=== PATIENT | male | born 1965 | race Caucasian/White ===

== ENCOUNTER 2017-08-01 17:24 | Inpatient (IN) | payer SELFPAY ==
[~2017-08-01] VITALS: Ht 180.3 cm; Wt 83.9 kg
[2017-08-01] MEDS ORDERED: Pantoprazole Inj IV ONE (17:30)
--- NOTE | 2017-08-01 17:55 | Emergency Room Report ---
History of Present Illness General Chief Complaint: General Complaint Source: Patient, EMS Present Illness HPI 51-year-old male, alcoholic, presenting with 3 days of epigastric pain, generalized weakness. Patient not very good historian. EMS states that he was picked up from a hotel, family was with him, states that for 3 days he has had some dark bloody vomiting. Patient denies having any vomiting today, says that the last time was yesterday. Also has been having dark stool. Admits to drinking 1.5 pints of hard liquor every day. The last drink was 3-4 days ago. Denies any history of GI bleeding. Denies history of having endoscopy or colonoscopy is performed. Denies being on any blood thinners Allergies: Coded Allergies: No Known Allergies (Unverified , 08/01/17) Patient History Past Medical History: see triage record Past Surgical History: none Pertinent Family History: none Reviewed Nursing Documentation: PMH: Agreed, PSxH: Agreed Nursing Documentation-PMH Past Medical History: No History, Except For Hx Hypertension: Yes Review of Systems All Other Systems: negative except mentioned in HPI Physical Exam Vital Signs Date Time Temp Pulse Resp B/P (MAP) Pulse Ox O2 Delivery O2 Flow Rate FiO2 08/01/17 17:19 86 20 90/60 86 Non-Rebreather 15.0 Sp02 EP Interpretation: reviewed, normal General Appearance: alert, GCS 15, non-toxic, moderate distress Head: normocephalic, atraumatic Eyes: bilateral eye normal inspection, bilateral eye PERRL, bilateral eye EOMI ENT: normal ENT inspection, normal pharynx, normal voice, moist mucus membranes Neck: normal inspection, full range of motion, supple Respiratory: normal inspection, lungs clear, normal breath sounds, no respiratory distress, no retraction, no wheezing, speaking full sentences, chest symmetrical Cardiovascular #1: normal inspection, regular rate, rhythm, normal capillary refill Cardiovascular #2: 2+ radial (R), 2+ radial (L) Gastrointestinal: other - +mild epigastric and LLE tenderness, no guarding or rigdity. normal BS Musculoskeletal: normal inspection, back normal, normal range of motion, non- tender Neurologic: normal inspection, alert, oriented x3, responsive, motor strength/ tone normal, sensory intact, normal gait, speech normal Psychiatric: other - POOR HISTORIAN Skin: normal inspection, normal color, no rash, warm/dry, well hydrated, normal turgor Procedures Critical Care Time Critical Care Time 40 minutes of CC time 51-year-old male, presenting with abdominal pain, coffee-ground emesis Found to have perforated gastric ulcer VS: Hypotensive Airway patent. Not hypoxic. PLAN: IV access, labs, lactate, troponin, CT abdomen pelvis, and surgery consults, antibiotics Anticipate admission to Tele vs. VERA CC time also includes review of labs, review of EMR, discussion with family and paperwork from SNF, d/w hospitalist CC could include dosing of pressors, additional Abx CC time does not include procedures Central Line Central Line : Consent: Emergent Central Line Lumen: triple Maximal Sterile Barrier Tech: yes cap, yes mask, yes sterile gown, yes sterile gloves, yes large sterile sheet, yes hand hygiene, yes chlorhexidine prep Central Line Postion: internal jugular (R) Anesthesia: Lidocaine cc's of anesthesia: 5 Complications: none Central Line Post Position: sutured, good blood return, position confirmed w / CXR Attempts: One Patient Tolerated: Well Medical Decision Making Diagnostic Impression: Primary Impression: Hyponatremia Additional Impressions: Renal failure Upper GI bleeding Alcohol abuse Lactic acid acidosis Perforated ulcer Pneumoperitoneum Septic shock ER Course 51-year-old male with coffee-ground emesis DDX: GI bleed, esophageal varices, gastritis, gastric ulcer, diverticulitis, appendicitis Plan: Obtain labs, ua, EKG, CXR, CT abdomen pelvis Protonix, Zofran ER course: Patient has been monitored during ED stay, HD stable Protonix and Zofran given BP has remained stable no episodes of vomiting in ED labs remarkable for lactic acidosis, hyponatremia, renal failure, elevated LFTS octreotide given for poss esoph varices CT abdo pelvis obtained: gastric hemorrhagic mass with possible perforation, also poss gastric ulcer perf Dr North from surgery consulted fluids given x 3-- patient still persistently hypotensive central line placed levophed started I spoke to patient and fiance at bedside, conveyed very critical condition of patient. Sepsis Re-examination Time: 9:50 PM VS: Temp 98 HR 86 BP 100/80 RR 20 CVS: RRR Respiratory: Lungs clear bilaterally Peripheral pulses: 2+ radial Capillary refill: <2 seconds Skin exam: warm, dry, no rash, not mottled Disposition: Patient is to be admitted to ICU / OR with Dr North hospitlist Dr Nelson Anne and Dr Lanier covering for Ericbrenda Please note that this Emergency Department Report was dictated using [employer]pa[employer] consultant technology software, occasionally this can lead to erroneous entry secondary to interpretation by the dictation equipment. EKG Diagnostic Results EP Interpretation: Yes Rate: normal Rhythm: NSR ST Segments: No acute changes ASA given to patient: No Rhythm Strip EP Interpretation: Yes Rate: 90 Rhythm: NSR, no PVCs, no ectopy Chest X-ray CXR: Ordered: Yes 1 view Indication: Pain EP interpretation: Yes Interpretation: No consolidation, no effusion, no PTX, no acute cardiopulmonary disease Impression: No acute disease Electronically signed by Catalina Curran MD Chest X-ray CXR: Ordered: Yes 1 view Indication: Chest pain EP interpretation: Yes Interpretation: No consolidation, no effusion, no PTX, no acute cardiopulmonary disease, CVP in place Impression: cvp in place Electronically signed by Catalina Curran MD Laboratory Tests Test 08/01/17 17:35 White Blood Count 17.5 K/UL (4.8-10.8) H Red Blood Count 3.58 M/UL (4.70-6.10) L Hemoglobin 12.6 G/DL (14.2-18.0) L Hematocrit 39.3 % (42.0-52.0) L Mean Corpuscular Volume 110 FL (80-99) H Mean Corpuscular Hemoglobin 35.1 PG (27.0-31.0) H Mean Corpuscular Hemoglobin Concent 32.0 G/DL (32.0-36.0) Red Cell Distribution Width 14.3 % (11.6-14.8) Platelet Count 469 K/UL (150-450) H Mean Platelet Volume 7.0 FL (6.5-10.1) Neutrophils (%) (Auto) 87.2 % (45.0-75.0) H Lymphocytes (%) (Auto) 9.2 % (20.0-45.0) L Monocytes (%) (Auto) 2.6 % (1.0-10.0) Eosinophils (%) (Auto) 0.1 % (0.0-3.0) Basophils (%) (Auto) 0.9 % (0.0-2.0) Prothrombin Time 11.5 SEC (9.30-11.50) Prothrombin Time INR 1.1 (0.9-1.1) PTT 35 SEC (23-33) H Sodium Level 127 MMOL/L (136-145) L Potassium Level 4.5 MMOL/L (3.5-5.1) Chloride Level 85 MMOL/L (98-107) L Carbon Dioxide Level 12 MMOL/L (21-32) L Anion Gap 30 mmol/L (5-15) H Blood Urea Nitrogen 34 mg/dL (7-18) H Creatinine 4.1 MG/DL (0.55-1.30) H Estimate Glomerular Filtration Rate 15.4 mL/min (>60) Glucose Level 79 MG/DL (74-106) Lactic Acid Level 17.90 mmol/L (0.66-2.22) H Calcium Level 10.5 MG/DL (8.5-10.1) H Total Bilirubin 1.1 MG/DL (0.2-1.0) H Direct Bilirubin 0.5 MG/DL (0.0-0.3) H Aspartate Amino Transferase (AST) 286 U/L (15-37) H Alanine Aminotransferase (ALT) 166 U/L (12-78) H Alkaline Phosphatase 71 U/L (46-116) Troponin I 0.000 ng/mL (0.000-0.056) Total Protein 6.1 G/DL (6.4-8.2) L Albumin 2.4 G/DL (3.4-5.0) L Globulin 3.7 g/dL Albumin/Globulin Ratio 0.6 (1.0-2.7) L Lipase 384 U/L (73-393) Last Vital Signs Date Time Temp Pulse Resp B/P (MAP) Pulse Ox O2 Delivery O2 Flow Rate FiO2 08/01/17 17:19 86 20 90/60 86 Non-Rebreather 15.0 Disposition: ADMITTED INPATIENT Condition: Critical Catalina Curran M.D. Aug 01, 2017 17:55
[2017-08-01 18:15] LABS: BASOPHILS % (AUTO) 0.9 % (0.0-2.0); EOSINOPHILS % (AUTO) 0.1 % (0.0-3.0); HEMATOCRIT 39.3 % (42.0-52.0); HEMOGLOBIN 12.6 G/DL (14.2-18.0); LYMPHOCYTES % (AUTO) 9.2 % (20.0-45.0); MEAN CORPUSCULAR VOLUME 110 FL (80-99); MONOCYTES % (AUTO) 2.6 % (1.0-10.0); NEUTROPHILS % (AUTO) 87.2 % (45.0-75.0); PLATELET COUNT 469 K/UL (150-450); RED BLOOD COUNT 3.58 M/UL (4.70-6.10); RED CELL DISTRIBUTION WIDTH 14.3 % (11.6-14.8); WHITE BLOOD COUNT 17.5 K/UL (4.8-10.8)
[2017-08-01 18:33] LABS: ANION GAP 30 mmol/L (5-15); BLOOD UREA NITROGEN 34 mg/dL (7-18); CALCIUM 10.5 MG/DL (8.5-10.1); CARBON DIOXIDE 12 MMOL/L (21-32); CHLORIDE 85 MMOL/L (98-107); CREATININE 4.1 MG/DL (0.55-1.30); POTASSIUM 4.5 MMOL/L (3.5-5.1); SODIUM 127 MMOL/L (136-145)
[2017-08-01 18:47] LABS: ALANINE AMINOTRANSFERASE 166 U/L (12-78); ALBUMIN 2.4 G/DL (3.4-5.0); ALBUMIN/GLOBULIN RATIO 0.6 (1.0-2.7); ALKALINE PHOSPHATASE 71 U/L (46-116); ASPARTATE AMINO TRANSFERASE 286 U/L (15-37); BILIRUBIN,TOTAL 1.1 MG/DL (0.2-1.0)
[2017-08-01] MEDS ORDERED: LISINOPRIL-HCT1 EACH ORAL (18:47)
[2017-08-01 18:53] LABS: BILIRUBIN,DIRECT 0.5 MG/DL (0.0-0.3)
[2017-08-01 18:56] LABS: INR 1.1 (0.9-1.1)
[2017-08-01 20:00] VITALS: BP 79/39
[2017-08-01] MEDS: Octreotide Acetate 500 MCG in Sodium Chloride 500ML 499 ML IV SCH (20:07)
[2017-08-01] MEDS ORDERED: Piperacillin/Tazobactam 3.375 GM in NS 110 ML IVPB ONE (20:45)
[2017-08-01] MEDS ORDERED: Zosyn 3.375gm inj ONE (20:51)
[2017-08-01 21:00] VITALS: BP 87/66
[2017-08-01] MEDS ORDERED: Morphine Sulfate 4mg/ml Inj IVP ONE (21:15)
[2017-08-01] MEDS ORDERED: Lidocaine 1% Plain 30 ml INJ ONE (21:15)
[2017-08-01] MEDS ORDERED: fentaNYL 100 mcg/2 mL IV ONE ×3 (21:19→22:30)
[2017-08-01] MEDS ORDERED: Levophed 4mg/4mL Inj IV ONE ×2 (21:21→23:40)
[2017-08-01] MEDS ORDERED: Bacitracin 50000 Units Vial IRRIG ONE (22:00)
--- NOTE | 2017-08-01 22:01 | Consultation ---
History of Present Illness General Date patient seen: Aug 01, 2017 Chief Complaint: General Complaint Reason for Consultation: perforated viscus Present Illness HPI 51M presented to ED c/o worsening abdominal pain. patient is a poor historian. states that for 6 months he has been feeling stressed and unwell. has been having abdominal bloating and discomfort for past 6 months. has been having intermittent nausea and emesis for 6 months. past 3 days has had dark possibly bloody emesis. abdominal pain has been acutely worsening over past 3 days and 8 /10 at max. he began to become sob and worse tonight so came to ED for evaluation. in ED CT scan performed and found to have significant free fluid, pneumoperitoneum and likely gastric perforation with surrounding gastric edema. surgery called to evaluate. no history of scope. last BM 3 days ago and normal when seen at bedside patient in moderate distress. history obtained, chart reviewed, images reviewed. PMHx: HTN PSHx: right hip surgery after ski accident years ago Meds: losartan and HCTZ NKDA Social Hx: drinks daily (2-3 beers and hard alcohol for some time now), tobacco use and marijuana use. no ivda. stopped drinking 3 days ago because of discomfort. FHx: n/c Allergies: Coded Allergies: No Known Allergies (Unverified , 08/01/17) Medication History Scheduled Lisinopril/Hydrochlorothiazide 10-12.5 Mg Tab (Lisinopril-Hctz 10-12.5 Mg Tab), 1 TAB ORAL BID, (Reported) Patient History History Provided By: Patient, Medical Record Healthcare decision maker Resuscitation status Advanced Directive on File Past Medical/Surgical History Past Medical/Surgical History: (1) Septic shock (2) Pneumoperitoneum (3) Alcohol abuse (4) Hyponatremia (5) Renal failure (6) Upper GI bleeding (7) Lactic acid acidosis (8) Perforated ulcer Review of Systems All Other Systems: negative except mentioned in HPI Physical Exam General Appearance: moderate distress Lines, tubes and drains: peripheral, central line HEENT: normocephalic, atraumatic Neck: normal inspection Respiratory/Chest: lungs clear, no accessory muscle use, other - labored on face mask Cardiovascular/Chest: normal peripheral pulses, tachycardia Abdomen: distended, guarding, rebound, tender, other - peritonitis generalized with acute abdomen Extremities: normal inspection Neurologic: alert, oriented x 3, responsive Last 24 Hour Vital Signs Date Time Temp Pulse Resp B/P (MAP) Pulse Ox O2 Delivery O2 Flow Rate FiO2 08/01/17 21:00 94.8 80 20 87/66 86 Room Air 15.0 94.8 08/01/17 20:00 94.8 80 20 79/39 86 Room Air 15.0 94.8 08/01/17 18:42 94.8 94.8 08/01/17 17:19 86 20 90/60 86 Non-Rebreather 15.0 Laboratory Tests Test 08/01/17 17:35 08/01/17 21:30 White Blood Count 17.5 K/UL (4.8-10.8) H Red Blood Count 3.58 M/UL (4.70-6.10) L Hemoglobin 12.6 G/DL (14.2-18.0) L Hematocrit 39.3 % (42.0-52.0) L Mean Corpuscular Volume 110 FL (80-99) H Mean Corpuscular Hemoglobin 35.1 PG (27.0-31.0) H Mean Corpuscular Hemoglobin Concent 32.0 G/DL (32.0-36.0) Red Cell Distribution Width 14.3 % (11.6-14.8) Platelet Count 469 K/UL (150-450) H Mean Platelet Volume 7.0 FL (6.5-10.1) Neutrophils (%) (Auto) 87.2 % (45.0-75.0) H Lymphocytes (%) (Auto) 9.2 % (20.0-45.0) L Monocytes (%) (Auto) 2.6 % (1.0-10.0) Eosinophils (%) (Auto) 0.1 % (0.0-3.0) Basophils (%) (Auto) 0.9 % (0.0-2.0) Prothrombin Time 11.5 SEC (9.30-11.50) Prothromb Time International Ratio 1.1 (0.9-1.1) Activated Partial Thromboplast Time 35 SEC (23-33) H Sodium Level 127 MMOL/L (136-145) L Potassium Level 4.5 MMOL/L (3.5-5.1) Chloride Level 85 MMOL/L (98-107) L Carbon Dioxide Level 12 MMOL/L (21-32) L Anion Gap 30 mmol/L (5-15) H Blood Urea Nitrogen 34 mg/dL (7-18) H Creatinine 4.1 MG/DL (0.55-1.30) H Estimat Glomerular Filtration Rate 15.4 mL/min (>60) Glucose Level 79 MG/DL (74-106) Lactic Acid Level 17.90 mmol/L (0.66-2.22) H Pending Calcium Level 10.5 MG/DL (8.5-10.1) H Total Bilirubin 1.1 MG/DL (0.2-1.0) H Direct Bilirubin 0.5 MG/DL (0.0-0.3) H Aspartate Amino Transf (AST/SGOT) 286 U/L (15-37) H Alanine Aminotransferase (ALT/SGPT) 166 U/L (12-78) H Alkaline Phosphatase 71 U/L (46-116) Troponin I 0.000 ng/mL (0.000-0.056) Total Protein 6.1 G/DL (6.4-8.2) L Albumin 2.4 G/DL (3.4-5.0) L Globulin 3.7 g/dL Albumin/Globulin Ratio 0.6 (1.0-2.7) L Lipase 384 U/L (73-393) Height (Feet): 5 Height (Inches): 11.00 Weight (Pounds): 180 Medications Current Medications Medications (Trade) Dose Ordered Sig/Sydnee Route PRN Reason Start Time Stop Time Status Last Admin Dose Admin Norepinephrine Bitartrate 4 mg/ Dextrose 250 ml @ 0 mls/hr Q24H IV 08/01/17 21:15 08/31/17 21:14 Octreotide Acetate 500 mcg/ Sodium Chloride 500 ml @ 50 mls/hr Q10H IV 08/01/17 19:00 08/31/17 18:59 08/01/17 20:07 Assessment/Plan Problem List: (1) Perforated ulcer Assessment & Plan: 51M with likely perforated gastric ulcer. septic in shock. leukocytosis. lactic acid 17!!!!! Cr elevated, liver functions elevated. poor condition. peritonitis with acute abdomen. CT findings reviewed. Needs to go to OR right away. IV fluids IV Abx Consent OR for exploratory laparotomy. mortality explained to patient as well as high morbidity rate. prognosis guarded ICD Codes: K27.5 - Chronic or unspecified peptic ulcer, site unspecified, with perforation; R65.21 - Severe sepsis with septic shock SNOMED: [id number] Status: deteriorating King North Aug 01, 2017 22:01
--- NOTE | 2017-08-01 22:02 | Pre-Procedure Note/Attestation ---
Pre-Procedure Note/Attestation Complete Prior to Procedure Planned Procedure: not applicable Procedure Narrative: exploratory laparotomy, possible bowel resection, possible ostomy Indications for Procedure Pre-Operative Diagnosis: perforated viscus, acute abdomen, peritonitis, septic shock Attestation I attest that I discussed the nature of the procedure; its benefits; risks and complications; and alternatives (and the risks and benefits of such alternatives ), prior to the procedure, with the patient (or the patient's legal membership sales representative). I attest that, if there was a reasonable possibility of needing a blood transfusion, the patient (or the patient's legal membership sales representative) was given the [facility] standardized written summary, pursuant to the Yonis [employer] Blood Safety Act ([place] Health and Safety Code # 1645, as amended). I attest that I re-evaluated the patient just prior to the surgery and that there has been no change in the patient's H&P, except as documented below: King North Aug 01, 2017 22:02
[2017-08-01 22:05] VITALS: BP 98/69
[2017-08-01 22:15] VITALS: BP 100/63
[2017-08-01] MEDS ORDERED: Midazolam 2mg/2ml Inj ONE (22:16)
[2017-08-01] MEDS ORDERED: Propofol 200mg/20ml IV ONE (22:16)
[2017-08-01] MEDS ORDERED: Zemuron 50mg/5ml Inj IV ONE (22:16)
[2017-08-01] MEDS ORDERED: Succinylcholine 20mg/ml 10ml vial ONE (22:16)
[2017-08-01] MEDS ORDERED: LR 1000ml ONE (22:16)
[2017-08-01 23:30] VITALS: BP 62/29
--- NOTE | 2017-08-01 23:33 | Anethesia Preoperative Eval ---
Anesthesia Pre-op PMH/ROS General Date of Evaluation: Aug 01, 2017 Time of Evaluation: 22:16 Anesthesiologist: Adrienne ASA Score: ASA 4 - Emergency Mallampati Score Class I : Soft palate, uvula, fauces, pillars visible Class II: Soft palate, uvula, fauces visible Class III: Soft palate, base of uvula visible Class IV: Only hard plate visible Mallampati Classification: Class II Surgeon: Mary Anne Diagnosis: Abd Pain Surgical Procedure: Exp Lap Family History: no anesthesia problems Allergies: Coded Allergies: No Known Allergies (Unverified , 08/01/17) Medications: see eMAR Past Medical History Cardiovascular: Reports: HTN Anesthesia Pre-op Phys. Exam Physician Exam Date of Discussion: 08/01/17 A [id number] discussion with the [] regarding the patient's advanced care planning took place during this hospitalization on the above date. The discussion included the explanation and discussion of advance directives and associated forms/documents, as well as the patient's current code status. We also discussed at length the patient's medical conditions (both acute and chronic), general prognosis, treatment options, and goals of care. The following summarizes the discussion: Advance Care Planning/Goals of Care: - Will attempt to fill out an AD and/or POLST with the patient prior to discharge, if not already completed - Continue current evaluation and management of any acute and chronic medical issues - Will continue to support the patient/family - Will continue to discuss both short- and long-term goals of care DPOA-HC/Surrogate Decision Maker: None currently appointed [] Code Status: Full Code AD Forms/Documents Completed: Deferred A total of 31 minutes was spent on this discussion, including counseling, answering questions, and completing, if any, pertinent advanced care planning forms/documents. Last Vital Signs Date Time Temp Pulse Resp B/P (MAP) Pulse Ox O2 Delivery O2 Flow Rate FiO2 08/01/17 22:15 98.0 20 100/63 99 Simple Mask 98.0 08/01/17 22:05 88 15.0 80 Constitutional: other - In Extremis Neurologic: CN 2-12 intact Cardiovascular: other - Rhonchi Bilateral Respiratory: other - Rhonci Gastrointestinal: S/NT/ND Airway Exam Mallampati Score: Class II MO: limited ROM: limited Teeth: missing, intact Anesthesia Pre-op A/P Labs Hematology Test 08/01/17 17:35 White Blood Count 17.5 K/UL (4.8-10.8) H Red Blood Count 3.58 M/UL (4.70-6.10) L Hemoglobin 12.6 G/DL (14.2-18.0) L Hematocrit 39.3 % (42.0-52.0) L Mean Corpuscular Volume 110 FL (80-99) H Mean Corpuscular Hemoglobin 35.1 PG (27.0-31.0) H Mean Corpuscular Hemoglobin Concent 32.0 G/DL (32.0-36.0) Red Cell Distribution Width 14.3 % (11.6-14.8) Platelet Count 469 K/UL (150-450) H Mean Platelet Volume 7.0 FL (6.5-10.1) Neutrophils (%) (Auto) 87.2 % (45.0-75.0) H Lymphocytes (%) (Auto) 9.2 % (20.0-45.0) L Monocytes (%) (Auto) 2.6 % (1.0-10.0) Eosinophils (%) (Auto) 0.1 % (0.0-3.0) Basophils (%) (Auto) 0.9 % (0.0-2.0) Coagulation Test 08/01/17 17:35 Prothrombin Time 11.5 SEC (9.30-11.50) Prothromb Time International Ratio 1.1 (0.9-1.1) Activated Partial Thromboplast Time 35 SEC (23-33) H Chemistry Test 08/01/17 17:35 08/01/17 21:30 Sodium Level 127 MMOL/L (136-145) L Potassium Level 4.5 MMOL/L (3.5-5.1) Chloride Level 85 MMOL/L (98-107) L Carbon Dioxide Level 12 MMOL/L (21-32) L Anion Gap 30 mmol/L (5-15) H Blood Urea Nitrogen 34 mg/dL (7-18) H Creatinine 4.1 MG/DL (0.55-1.30) H Estimat Glomerular Filtration Rate 15.4 mL/min (>60) Glucose Level 79 MG/DL (74-106) Lactic Acid Level 17.90 mmol/L (0.66-2.22) H 9.00 mmol/L (0.66-2.22) H Calcium Level 10.5 MG/DL (8.5-10.1) H Total Bilirubin 1.1 MG/DL (0.2-1.0) H Direct Bilirubin 0.5 MG/DL (0.0-0.3) H Aspartate Amino Transf (AST/SGOT) 286 U/L (15-37) H Alanine Aminotransferase (ALT/SGPT) 166 U/L (12-78) H Alkaline Phosphatase 71 U/L (46-116) Troponin I 0.000 ng/mL (0.000-0.056) Total Protein 6.1 G/DL (6.4-8.2) L Albumin 2.4 G/DL (3.4-5.0) L Globulin 3.7 g/dL Albumin/Globulin Ratio 0.6 (1.0-2.7) L Lipase 384 U/L (73-393) Risk Assessment & Plan Assessment: ASA 4E Plan: GA Pre-Antibiotics Dru Grams Ancef IV Given Within 1 Hr of Incision: Yes Time Given: 22:41 Devan Deleon MD Aug 01, 2017 23:32
--- NOTE | 2017-08-01 23:35 | General Progress Note ---
Progress Note Progress Note Surgery: After acute resuscitation in ED patient was taken to OR for Emergency surgery. Patient's condition deteriorating upon transport and active resuscitation in process. shortly after entering the operating room patient acutely decompensated then went into cardiopulmonary arrest. Active ACLS protocol initiated with chest compressions and code blue called. Staff support arrived and after 3 epi and 1 bicarb with ACLS was able to regain vitals. Patient too unstable to proceed with surgery and taken to ICU for resuscitation. High mortality if proceeding with surgery. Best chance patient has is with aggressive resuscitation overnight with plans to return to OR in AM if possible. He was very sick prior to surgery with known high morbidity and mortality. Prognosis guarded. King North Aug 01, 2017 23:35
--- NOTE | 2017-08-01 23:40 | Immediate Post-Op Evaluation ---
Immediate Post-Op Evalulation Immediate Post-Op Evalulation Procedure: Cancelled Operation-Pt Arrested in OR Date of Evaluation: Aug 01, 2017 Time of Evaluation: 11:47 IV Fluids: 200 LR Blood Products: 0 Estimated Blood Loss: 0 Urinary Output: 0 Blood Pressure Systolic: 121 Blood Pressure Diastolic: 61 Pulse Rate: 126 Respiratory Rate: 20 - Mech Vent O2 Sat by Pulse Oximetry: 98 Temperature (Fahrenheit): 97 Pain Score (1-10): 0 Nausea: No Vomiting: No Complications Pt Arrested After Intubation. Bradycardia , then CPR Started, 3 amps epi, 1 amp Bicarb. Rhythm restored . Taken to ICU . Operation Cancelled Patient Status: no response, patent, ventilated, none Hydration Status: other Dru Grams ancef IV Given Within 1 Hr of Incision: Yes Time Given: 11:41 Devan Deleon MD Aug 01, 2017 23:40
[2017-08-01 23:45] VITALS: BP 112/72
[2017-08-01] MEDS ORDERED: Piperacillin/Tazobactam 3.375 GM in NS 110 ML IVPB SCH (23:45)
[2017-08-01] MEDS ORDERED: Hydromorphone 0.5mg/0.5ml inj IVP PRN (23:45)
[2017-08-01] MEDS ORDERED: HYDROmorphone 1mg/ml Carpuject IVP PRN (23:45)
[2017-08-01] MEDS ORDERED: LORazepam Inj 2mg/ml 1ml IV PRN (23:45)
[2017-08-02] VITALS (31 sets, daily range): BP systolic 65–113; BP diastolic 24–82
[2017-08-02] MEDS ORDERED: Sodium Bicarbonate 50ml Carp IV ONE ×2 (00:15→07:30)
[2017-08-02] MEDS: Pantoprazole Inj IV SCH ×2 (00:24→08:54)
[2017-08-02] MEDS ORDERED: Calcium Gluconate 10% 1 GM in NS 110 ML IV ONE (00:45)
[2017-08-02] MEDS: Octreotide Acetate 500 MCG in Sodium Chloride 500ML 499 ML IV SCH (01:05)
[2017-08-02] MEDS ORDERED: Calcium Gluconate 1gm/10ml vial ONE ×2 (01:39→08:55)
[2017-08-02] MEDS ORDERED: Levophed 4mg/4mL Inj IV ONE ×3 (01:49→07:00)
[2017-08-02] MEDS ORDERED: Zosyn 3.375gm inj ONE (05:23)
[2017-08-02 05:58] LABS: HEMATOCRIT 35.3 % (42.0-52.0); HEMOGLOBIN 11.2 G/DL (14.2-18.0); MEAN CORPUSCULAR VOLUME 111 FL (80-99); PLATELET COUNT 348 K/UL (150-450); RED BLOOD COUNT 3.18 M/UL (4.70-6.10); RED CELL DISTRIBUTION WIDTH 14.6 % (11.6-14.8); WHITE BLOOD COUNT 9.8 K/UL (4.8-10.8)
[2017-08-02] MEDS ORDERED: Piperacillin/Tazobactam 3.375 GM in NS 110 ML IVPB SCH (06:00)
[2017-08-02 06:21] LABS: INR 1.5 (0.9-1.1)
[2017-08-02 06:45] LABS: ALANINE AMINOTRANSFERASE 4802 U/L (12-78); ALBUMIN 1.8 G/DL (3.4-5.0); ALBUMIN/GLOBULIN RATIO 0.6 (1.0-2.7); ALKALINE PHOSPHATASE 101 U/L (46-116); ANION GAP 18 mmol/L (5-15); ASPARTATE AMINO TRANSFERASE < 5 U/L (15-37); BILIRUBIN,TOTAL 2.2 MG/DL (0.2-1.0); BLOOD UREA NITROGEN 40 mg/dL (7-18); CALCIUM 8.4 MG/DL (8.5-10.1); CARBON DIOXIDE 16 MMOL/L (21-32); CHLORIDE 90 MMOL/L (98-107); POTASSIUM 5.4 MMOL/L (3.5-5.1); SODIUM 124 MMOL/L (136-145)
[2017-08-02 06:49] LABS: BILIRUBIN,DIRECT 1.2 MG/DL (0.0-0.3)
--- NOTE | 2017-08-02 07:07 | 48 Hour Post Anesthesia Eval ---
Post Anesthesia Evaluation Procedure: Cancelled Operation-Pt Arrested in OR Date of Evaluation: Aug 02, 2017 Time of Evaluation: 07:05 Blood Pressure Systolic: 142 0: 116 Pulse Rate: 122 Respiratory Rate: 20 - Mech Vent Temperature (Fahrenheit): 98 O2 Sat by Pulse Oximetry: 98 Airway: patent Nausea: No Vomiting: No Pain Intensity: 0 Hydration Status: other Cardiopulmonary Status: Guarded Mental Status/LOC: other - ICU Intubated, episodes of bradycardia in ICU Follow-up Care/Observations: 0 Post-Anesthesia Complications: 0 Follow-up care needed: N/A Devan Deleon MD Aug 02, 2017 07:07
--- NOTE | 2017-08-02 08:35 | General Progress Note ---
Progress Note Progress Note Surgery: patient remains critically ill. on max levophed. acidotic. unresponsive. hypotensive. tachy. LFT's worsening. renal function poor. no uop. needs surgery but too unstable at this time. will continue with maximal medical therapy. will return to OR if can turn the corner and become more stable. appreciate ICU care and management King North Aug 02, 2017 08:35
[2017-08-02] MEDS ORDERED: Calcium Chloride 100mg/ml Vial IVP ONE (09:00)
[2017-08-02] MEDS ORDERED: Calcium Chloride 10% 10ml carpuject IVP ONE (09:00)
--- NOTE | 2017-08-02 09:21 | Emergency Room Report ---
History of Present Illness General Chief Complaint: General Complaint Source: Significant Other Present Illness Allergies: Coded Allergies: No Known Allergies (Unverified , 08/01/17) Nursing Documentation-[facility] Past Medical History: No History, Except For Hx Cardiac Problems: Yes Hx Hypertension: Yes Hx Cancer: No Hx Gastrointestinal Problems: Yes Hx Neurological Problems: No Physical Exam Vital Signs Date Time Temp Pulse Resp B/P (MAP) Pulse Ox O2 Delivery O2 Flow Rate FiO2 08/01/17 17:19 86 20 90/60 86 Non-Rebreather 15.0 08/01/17 18:42 94.8 94.8 08/01/17 23:30 100 Procedures Critical Care Time Critical Care Time CC time 30minutes Critical care time endorsed for this patient for cardiac arrest/asystole Critical care time includes review of laboratory tests, imaging, review of EMR, review of paperwork from SNF (if available), discussion with patient and family (if available), review of code status/POLS (if available). Critical care time also likely includes assessment of fluid status, stabilization of vital signs, dosing of pressors. Critical care time does not include any procedures which are documented elsewhere in this EMR. CPR/Code Blue CPR/Code Blue Narrative Called to ICU for Code Blue Patient already intubated Went to asystole CPR in progress Received 2x epi and 1 bicarb prior to my arrival Per RN recent labs showed elevated serumCr, hyper K Last ABG pH was 6.9 Patient on levophed Vitals on arrival: HR 126, BP 80/60, RR26, 100% o2 on vent Gave additional bicarb and Calcium On next pulse check, has strong peripheral pulse, strong contractility on bedside echo ROSC 910am Dr Red bedside Also informed Dr Lanier who is managing critical care Medical Decision Making Diagnostic Impression: Primary Impression: Hyponatremia Additional Impressions: Upper GI bleeding Alcohol abuse Lactic acid acidosis Septic shock Perforated ulcer Renal failure Pneumoperitoneum Cardiac arrest Last Vital Signs Date Time Temp Pulse Resp B/P (MAP) Pulse Ox O2 Delivery O2 Flow Rate FiO2 08/02/17 07:30 102 27 68/53 92 Mechanical Ventilator 100 08/02/17 07:07 208.4 08/02/17 04:00 100.0 Status: improved Disposition: ADMITTED INPATIENT Condition: Critical Referrals: NOT CHOSEN IPA/,REFERRING (PCP) FATOU QUACH M.D. Aug 02, 2017 09:21
--- NOTE | 2017-08-02 09:26 | Diagnostic Imaging Report ---
Indication: Abdominal pain Technique: Continuous helical transaxial imaging of the abdomen and pelvis was obtained from the lung bases to the pubic symphysis. No intravenous contrast was administered. Coronal 2-D reformats were also obtained. Automatic Exposure Control was utilized. Total Dose length Product (DLP): 729.[address] Dose Index Volume (CTDIvol): 12.3 mGy Comparison: none Findings: The study is limited by the absence of intravenous and oral contrast administration. There is suggestion of a large ulcerative mass in the lateral aspect of the stomach measuring approximately 10 x 8 cm x 11 cm in AP, transverse, craniocaudal oblique projections respectively. At the caudal end of the mass there is suggestion of ulceration with small areas of air. The mass is lobulated and slightly dense and as was suggested by the preliminary reader stat read may be hemorrhagic. There is free air and fairly massive degree of ascites which is presumably on the basis of perforation from the ulcerative mass in the stomach. There are fluid-filled distended loops of small bowel throughout the abdomen which may be ileus. The esophagus is moderately dilated and fluid-filled. Possible that this is secondary to some impediment to outflow, but the stomach mass does not appear to be obstructive as the stomach is not dilated proximally. Therefore would consider achalasia. Aorta is mildly calcified. The gallbladder is hyperdense which may be due to underlying sludge or stones. There is a right inguinal hernia containing fat. The urinary bladder is nondistended with some prominence of the wall of the urinary bladder noted. There is narrowing of intervertebral discs and accompanying endplate osteophyte formation. Hypertrophied facet joints also demonstrated.. IMPRESSION: 10 x 8 x 11 cm heterogeneous ulcerative mass lateral aspect of the stomach suspicious for malignancy. Evidence of perforation with extensive free fluid and free air within the peritoneal cavity. Hemorrhagic components may be present. Dilated esophagus fluid-filled. Consider achalasia. Atherosclerotic disease and other incidental findings as above. [facility] has communicated the preliminary results to the Emergency Department. Their findings are largely concordant with this report. The CT scanner at [facility] is accredited by the [employer] and the scans are performed using dose optimization techniques as appropriate to a performed exam including Automatic Exposure control.
[2017-08-02] MEDS ORDERED: LORazepam Inj 2mg/ml 1ml IV PRN (10:15)
[2017-08-02] MEDS ORDERED: Morphine Sulfate 4mg/ml Inj IVP PRN (10:15)
[2017-08-02] MEDS ORDERED: Amikacin Rx to dose MISC PRN (10:15)
--- NOTE | 2017-08-02 10:29 | Pulmonolgy Critical Care Note ---
Critical Care - Asmt/Plan Problems: (1) Multiple organ failure (2) Cardiac arrest (3) Septic shock (4) Pneumoperitoneum (5) Hyponatremia (6) Renal failure (7) Upper GI bleeding Respiratory: monitor respiratory rate, adjust FIO2, CXR Cardiac: continue pressors, continue to monitor HR/BP Renal: F/U I&O, increase IV fluid Infectious Disease: check cultures Gastrointestinal: continue feedings/current rate Endocrine: check TSH, check HgA1C, continue sliding scale insulin Hematologic: monitor H/H, transfuse if hgb<8.5 Neurologic: PRN Ativan, keep patient comfortable Affect: PRN ativan Disposition: keep in ICU Discussed with: nurses, consultants, mental health case manager, family member Critical Care - Objective Last 24 Hour Vital Signs Date Time Temp Pulse Resp B/P (MAP) Pulse Ox O2 Delivery O2 Flow Rate FiO2 08/02/17 10:00 65 28 98/42 92 Mechanical Ventilator 100 08/02/17 09:30 81/44 08/02/17 09:30 56 29 97/24 92 Mechanical Ventilator 100 08/02/17 09:21 101 27 100 08/02/17 09:00 83/46 08/02/17 09:00 61 28 81/44 92 Mechanical Ventilator 100 08/02/17 08:00 100 08/02/17 08:00 63/45 08/02/17 08:00 95 08/02/17 08:00 98.5 101 26 69/47 92 Mechanical Ventilator 100 08/02/17 07:30 102 27 68/53 92 Mechanical Ventilator 100 08/02/17 07:07 208.4 122 20 98 08/02/17 07:06 90/61 08/02/17 07:00 90 22 74/32 93 Mechanical Ventilator 100 08/02/17 06:58 109 26 100 08/02/17 06:30 110 22 89/62 93 Mechanical Ventilator 100 08/02/17 06:00 80/50 08/02/17 06:00 112 22 81/54 95 Mechanical Ventilator 100 08/02/17 05:30 115 22 93/52 95 Mechanical Ventilator 100 08/02/17 05:11 118 19 100 08/02/17 05:00 117 22 80/52 96 Mechanical Ventilator 100 08/02/17 05:00 80/52 08/02/17 04:57 92/72 08/02/17 04:30 119 26 92/72 96 Mechanical Ventilator 100 08/02/17 04:00 100.0 08/02/17 04:00 97/82 08/02/17 04:00 121 08/02/17 04:00 97.5 121 28 97/82 96 Mechanical Ventilator 100 08/02/17 03:30 121 26 65/52 99 Mechanical Ventilator 100 08/02/17 03:00 119 20 97/63 96 Mechanical Ventilator 100 08/02/17 03:00 74/43 08/02/17 02:59 119 17 100 08/02/17 02:45 119 20 93/63 93 Mechanical Ventilator 100 08/02/17 02:30 117 19 84/63 92 Mechanical Ventilator 100 08/02/17 02:15 117 16 79/53 92 Mechanical Ventilator 100 08/02/17 02:09 94/57 08/02/17 02:00 91/72 08/02/17 02:00 116 16 91/72 93 Mechanical Ventilator 100 08/02/17 01:45 115 16 94/57 93 Mechanical Ventilator 100 08/02/17 01:30 114 16 98/56 95 Mechanical Ventilator 100 08/02/17 01:22 115 16 100 08/02/17 01:15 113 16 101/61 96 Mechanical Ventilator 100 08/02/17 01:00 102/58 08/02/17 01:00 114 16 102/58 97 Mechanical Ventilator 100 08/02/17 00:45 115 16 106/71 98 Mechanical Ventilator 100 08/02/17 00:30 116 16 97/71 97 Mechanical Ventilator 100 08/02/17 00:15 116 16 87/57 99 Mechanical Ventilator 100 08/02/17 00:00 117 08/02/17 00:00 97.9 116 16 113/80 99 Mechanical Ventilator 100 08/02/17 00:00 100.0 08/01/17 23:54 60/30 08/01/17 23:45 116 16 112/72 99 Mechanical Ventilator 100 08/01/17 23:40 206.6 126 20 98 08/01/17 23:32 108 16 100 08/01/17 23:30 97.0 110 16 62/29 99 Mechanical Ventilator 100 08/01/17 22:30 97/62 08/01/17 22:15 98.0 20 100/63 99 Simple Mask 98.0 08/01/17 22:05 94.8 88 35 98/69 86 Room Air 15.0 94.8 80 08/01/17 21:57 79/67 08/01/17 21:00 94.8 80 20 87/66 86 Room Air 15.0 94.8 08/01/17 20:00 94.8 80 20 79/39 86 Room Air 15.0 94.8 08/01/17 18:42 94.8 94.8 08/01/17 17:19 86 20 90/60 86 Non-Rebreather 15.0 Status: obtunded Condition: critical, grave HEENT: atraumatic Neck: full ROM Lungs: rales, rhonchi Heart: HR/BP unstable Abdomen: absent bowel sounds Extremities: no C/C/E Accucheck: 64 Critical Care - Subjective ROS Limited/Unobtainable: Yes ICU Day: 1 Intubation Day: 1 Interval Events: 51-year-old male, alcoholic, presenting with 3 days of epigastric pain, generalized weakness. for 3 days he has had some dark bloody vomiting. Also has been having dark stool. Admits to drinking 1.5 pints of hard liquor every day. Ct of abdomen showed perforated viscous. He was taken to OR urgently. He arrested prior the start of the surgery and taken to ICU. FI02: 100 Vent Support Breath Rate: 24 Vent Support Mode: AC Vent Tidal Volume: 600 Sputum Amount: Moderate PEEP: 5.0 PIP: 33 I&O: Intake and Output 08/01/17 08/02/17 19:00 07:00 Intake Total 2945.0 ml Output Total 0 ml Balance 2945.0 ml Intake Oral 0 ml IV Total 2945.0 ml Output Urine Total 0 ml ET-Tube: 7.0 ET Position: 24 Labs: Laboratory Tests Test 08/01/17 17:35 08/01/17 21:30 08/01/17 23:48 08/02/17 05:30 White Blood Count 17.5 K/UL (4.8-10.8) H 9.8 K/UL (4.8-10.8) Red Blood Count 3.58 M/UL (4.70-6.10) L 3.18 M/UL (4.70-6.10) L Hemoglobin 12.6 G/DL (14.2-18.0) L 11.2 G/DL (14.2-18.0) L Hematocrit 39.3 % (42.0-52.0) L 35.3 % (42.0-52.0) L Mean Corpuscular Volume 110 FL (80-99) H 111 FL (80-99) H Mean Corpuscular Hemoglobin 35.1 PG (27.0-31.0) H 35.2 PG (27.0-31.0) H Mean Corpuscular Hemoglobin Concent 32.0 G/DL (32.0-36.0) 31.7 G/DL (32.0-36.0) L Red Cell Distribution Width 14.3 % (11.6-14.8) 14.6 % (11.6-14.8) Platelet Count 469 K/UL (150-450) H 348 K/UL (150-450) Mean Platelet Volume 7.0 FL (6.5-10.1) 8.2 FL (6.5-10.1) Neutrophils (%) (Auto) 87.2 % (45.0-75.0) H % (45.0-75.0) Lymphocytes (%) (Auto) 9.2 % (20.0-45.0) L % (20.0-45.0) Monocytes (%) (Auto) 2.6 % (1.0-10.0) % (1.0-10.0) Eosinophils (%) (Auto) 0.1 % (0.0-3.0) % (0.0-3.0) Basophils (%) (Auto) 0.9 % (0.0-2.0) % (0.0-2.0) Prothrombin Time 11.5 SEC (9.30-11.50) 16.1 SEC (9.30-11.50) H Prothromb Time International Ratio 1.1 (0.9-1.1) 1.5 (0.9-1.1) H Activated Partial Thromboplast Time 35 SEC (23-33) H 37 SEC (23-33) H Sodium Level 127 MMOL/L (136-145) L 124 MMOL/L (136-145) L Potassium Level 4.5 MMOL/L (3.5-5.1) 5.4 MMOL/L (3.5-5.1) H Chloride Level 85 MMOL/L (98-107) L 90 MMOL/L (98-107) L Carbon Dioxide Level 12 MMOL/L (21-32) L 16 MMOL/L (21-32) L Anion Gap 30 mmol/L (5-15) H 18 mmol/L (5-15) H Blood Urea Nitrogen 34 mg/dL (7-18) H 40 mg/dL (7-18) H Creatinine 4.1 MG/DL (0.55-1.30) H 4.0 MG/DL (0.55-1.30) H Estimat Glomerular Filtration Rate 15.4 mL/min (>60) 15.8 mL/min (>60) Glucose Level 79 MG/DL (74-106) 88 MG/DL (74-106) Lactic Acid Level 17.90 mmol/L (0.66-2.22) H 9.00 mmol/L (0.66-2.22) H 11.50 mmol/L (0.66-2.22) H Calcium Level 10.5 MG/DL (8.5-10.1) H 8.4 MG/DL (8.5-10.1) L Total Bilirubin 1.1 MG/DL (0.2-1.0) H 2.2 MG/DL (0.2-1.0) H Direct Bilirubin 0.5 MG/DL (0.0-0.3) H 1.2 MG/DL (0.0-0.3) H Aspartate Amino Transf (AST/SGOT) 286 U/L (15-37) H < 5 U/L (15-37) L Alanine Aminotransferase (ALT/SGPT) 166 U/L (12-78) H 4802 U/L (12-78) H Alkaline Phosphatase 71 U/L (46-116) 101 U/L (46-116) Troponin I 0.000 ng/mL (0.000-0.056) 2.844 ng/mL (0.000-0.056) Total Protein 6.1 G/DL (6.4-8.2) L 5.0 G/DL (6.4-8.2) L Albumin 2.4 G/DL (3.4-5.0) L 1.8 G/DL (3.4-5.0) L Globulin 3.7 g/dL 3.2 g/dL Albumin/Globulin Ratio 0.6 (1.0-2.7) L 0.6 (1.0-2.7) L Lipase 384 U/L (73-393) Arterial Blood pH 6.903 (7.350-7.450) Arterial Blood Partial Pressure CO2 54.3 mmHg (35.0-45.0) H Arterial Blood Partial Pressure O2 138.8 mmHg (75.0-100.0) H Arterial Blood HCO3 10.5 mmol/L (22.0-26.0) L Arterial Blood Oxygen Saturation 96.6 % (92.0-98.0) Arterial Blood Base Excess -22.1 Aldo Test Positive Ionized Calcium (Measured) 1.01 mmol/L (1.10-1.35) L Test 08/02/17 08:12 Arterial Blood pH 6.956 (7.350-7.450) Arterial Blood Partial Pressure CO2 32.7 mmHg (35.0-45.0) L Arterial Blood Partial Pressure O2 86.9 mmHg (75.0-100.0) Arterial Blood HCO3 7.1 mmol/L (22.0-26.0) L Arterial Blood Oxygen Saturation 92.7 % (92.0-98.0) Arterial Blood Base Excess -23.7 Aldo Test Positive ERLIN BETH Aug 02, 2017 10:29
--- NOTE | 2017-08-02 10:44 | Diagnostic Imaging Report ---
Indication: Line placement Comparison: None A single view chest radiograph was obtained. Findings: Right jugular central line is in good position. The tip is in the right atrium. Lung volumes are low bilaterally. No pneumothorax seen. IMPRESSION: Right jugular line in good position.
[2017-08-02] MEDS ORDERED: Vancomycin 1.5 GM/D5W 250ML IVPB ONE (11:00)
[2017-08-02] MEDS ORDERED: DOPamine 400mg/250ml 250 ML IV SCH ×2 (11:15→11:30)
[2017-08-02] MEDS ORDERED: Octreotide Acetate 500 MCG in Sodium Chloride 500ML 499 ML IV SCH (12:00)
[2017-08-02] MEDS ORDERED: Norepinephrine Bitartrate 8 MG in D5W 500ml 492 ML IV SCH (12:00)
[2017-08-02] MEDS ORDERED: Tubing IV Secondary IV ONE (12:29)
[2017-08-02] MEDS ORDERED: D5W 550ml IV ONE (12:29)
[2017-08-02] MEDS ORDERED: D5W 275ml ONE (12:29)
[2017-08-02] MEDS ORDERED: Sodium Bicarbonate 50ml Carp ONE ×2 (12:29)
--- NOTE | 2017-08-02 12:49 | Cardiology Report ---
APPROVED REPORT EKG Measurement Heart [id number] Normal sinus rhythm Low voltage QRS Nonspecific T wave abnormality Abnormal ECG
[2017-08-02] MEDS ORDERED: Amikacin 500 MG in NS 110 ML IV SCH (13:00)
--- NOTE | 2017-08-02 13:08 | Diagnostic Imaging Report ---
Indication: Dyspnea Comparison: 08/01/2017 A single view chest radiograph was obtained. Findings: Endotracheal tube is in good position just above the leida. Right jugular line again noted. Heart size is stable. Basilar atelectasis noted. IMPRESSION: Endotracheal tube in the position. No change in the
--- NOTE | 2017-08-02 14:28 | Diagnostic Imaging Report ---
Indication: Dyspnea Comparison: 08/01/2017 A single view chest radiograph was obtained. Findings: Cardiomediastinal appearance is within normal limits for age. Pulmonary vascularity is appropriate. The diaphragmatic contour is smooth and costophrenic angles are sharp. No pleural effusions are identified. The bones are unremarkable. Impression: No acute findings
--- NOTE | 2017-08-02 15:03 | Emergency Room Report ---
History of Present Illness General Chief Complaint: General Complaint Source: Significant Other Present Illness Allergies: Coded Allergies: No Known Allergies (Unverified , 08/01/17) Nursing Documentation-H Past Medical History: No History, Except For Hx Cardiac Problems: Yes Hx Hypertension: Yes Hx Cancer: No Hx Gastrointestinal Problems: Yes Hx Neurological Problems: No Physical Exam Vital Signs Date Time Temp Pulse Resp B/P (MAP) Pulse Ox O2 Delivery O2 Flow Rate FiO2 08/01/17 17:19 86 20 90/60 86 Non-Rebreather 15.0 08/01/17 18:42 94.8 94.8 08/01/17 23:30 100 Procedures CPR/Code Blue CPR/Code Blue Narrative Called again for Code Blue Glucose critically low Was given dextrose X2 pH continued to downtrend - I had advised admitting doctor to give bicarb gtt but this was not given Was given additional bicarb during code On multiple pulse checks in between CPR, asystole - no cardiac contractility on bedside sono At this point, given ?4x codes in last 24 hours, patient maxed out on renal- dosed dopamine and levophed and no urine output despite IVF bolus D/w Dr Lanier, agrees with medical futility in setting of septic shock, ? perforated viscous Patient pronounced at 1230pm Dr Lainer informed Medical Decision Making Diagnostic Impression: Primary Impression: Hyponatremia Additional Impressions: Upper GI bleeding Alcohol abuse Lactic acid acidosis Cardiac arrest Septic shock Perforated ulcer Renal failure Pneumoperitoneum Last Vital Signs Date Time Temp Pulse Resp B/P (MAP) Pulse Ox O2 Delivery O2 Flow Rate FiO2 08/02/17 12:05 95/39 08/02/17 12:00 97.4 90 28 90 Mechanical Ventilator 100 08/02/17 04:00 100.0 Disposition: ADMITTED INPATIENT Condition: Critical Referrals: NOT CHOSEN IPA/,REFERRING (PCP) FATOU QUACH M.D. Aug 02, 2017 15:03
[2017-08-02] MEDS ORDERED: Pantoprazole Inj IV SCH (21:00)
--- NOTE | 2017-08-03 09:47 | Discharge Summary ---
Discharge Summary Hospital Course Date of Admission Aug 01, 2017 at 23:50 Date of Discharge Aug 02, 2017 at 12:30 Admitting Diagnosis GI BLEED HPI Janie Capps is a 51 year old male who was admitted on Aug 01, 2017 at 23: 50 for Gastrointestinal Bleed Hospital Course 51-year-old male, alcoholic, presented with 3 days of epigastric pain, generalized weakness, for 3 days he has had some dark bloody vomiting. Also has been having dark stool. Admits to drinking 1.5 pints of hard liquor every day. Ct of abdomen showed perforated viscous. He was hypotensive on arrival to ED, a central line was inserted to R IJ and levophed was started. Surgical consultation was done, he was taken to OR urgently. During transport, he continued to decline. He arrested prior the start of the surgery, Code Gregg was called. He was taken to ICU. Resusitative efforts failed and he . Final Diagnosis: (1) Multiple organ failure (2) Cardiac arrest (3) Septic shock (4) Pneumoperitoneum (5) Hyponatremia (6) Renal failure (7) Acute Upper GI bleeding (8) Perforated viscus --I have been assigned to complete a DC summary on this account, I was not involved with the patient management.--PAMELA Carrera Discharge Discharge Disposition Patient Discharge Diagnoses: Olga Ozuna NP Aug 03, 2017 09:46
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
== END 2017-08-02 12:30 | disposition expired | DRG 871 ==
LOC: EDBD 17:24 → EMR 17:30 → EDBEDREQSVC 19:07 → SUR 22:15 → EDBEDREQ 22:37 → ICU 23:50
PROC: 05HM33Z Insertion of Infusion Device into Right Internal Jugular Vein, Percutaneous Approach (ICD-10-PCS; principal; 2017-08-01)
PROC: 5A1935Z Respiratory Ventilation, Less than 24 Consecutive Hours (ICD-10-PCS; 2017-08-02)
PROC: 5A12012 Performance of Cardiac Output, Single, Manual (ICD-10-PCS; 2017-08-02)
PROC: 0BH17EZ Insertion of Endotracheal Airway into Trachea, Via Natural or Artificial Opening (ICD-10-PCS; 2017-08-02)
DX: A41.9 Sepsis, unspecified organism (principal); R65.21 Severe sepsis with septic shock; I46.9 Cardiac arrest, cause unspecified; K25.5 Chronic or unspecified gastric ulcer with perforation; K65.8 Other peritonitis; E87.1 Hypo-osmolality and hyponatremia; K92.2 Gastrointestinal hemorrhage, unspecified; F10.20 Alcohol dependence, uncomplicated; Z53.09 Procedure and treatment not carried out because of other contraindication; I10 Essential (primary) hypertension
CPT/HCPCS: 36415; 36600; 71045; 74176; 80053; 82248; 82330; 82803; 83605; 83690; 84484; 85025; 85610; 85730; 86850; 86900; 86901; 87040; 87081; 92950; 93005; 94002; 94003; J0171; J2250; J2405